=== PATIENT | female | born 1985 | race Caucasian/White ===

== ENCOUNTER → 2017-07-27 | Emergency (ER) | payer OTHER ==
[~2017-07-27] VITALS: Ht 167.6 cm; Wt 95.3 kg
== END | disposition home or self-care (01) ==
LOC: ER 03:17
DX: O20.8 Other hemorrhage in early pregnancy (principal); Z34.01 Encounter for supervision of normal first pregnancy, first trimester

== ENCOUNTER 2019-07-09 16:16 | Outpatient (CLI) | payer OTHER | END 2019-07-09 16:21 | disposition home or self-care (01) | LOC: LAB 16:16 | DX: J11.1 Influenza due to unidentified influenza virus with other respiratory manifestations (principal); R05 Cough ==

== ENCOUNTER 2019-10-09 00:43 | Emergency (ER) | payer OTHER ==
[~2019-10-09] VITALS: Ht 165.1 cm; Wt 77.1 kg
[2019-10-09] MEDS ORDERED: PROAIR HFA8.5 GM (00:56)
[2019-10-09] MEDS ORDERED: INTESTINEX680 M2 PO (07:17)
[2019-10-09] MEDS ORDERED: ZOFRAN8 MG PO (07:17)
[2019-10-09] MEDS ORDERED: PEPCID AC20 MG PO (07:17)
== END 2019-10-09 07:40 | disposition home or self-care (01) ==
LOC: ER 00:43
DX: K29.00 Acute gastritis without bleeding (principal); R10.31 Right lower quadrant pain

== ENCOUNTER → 2021-08-13 | Emergency (ER) | payer OTHER ==
[~2021-08-13] VITALS: Ht 165.1 cm; Wt 78.9 kg
[~2021-08-13] MED LIST: INTESTINEX680 M2 PO; PEPCID AC20 MG PO; PROAIR HFA8.5 GM; TENCON 50-3251 EACH PO; ZOFRAN8 MG PO
== END | disposition home or self-care (01) ==
LOC: ER 02:45
DX: G43.909 Migraine, unspecified, not intractable, without status migrainosus (principal)

== ENCOUNTER 2023-04-05 02:54 | Emergency (ER) | payer OTHER ==
[~2023-04-05] VITALS: Ht 165.1 cm; Wt 75.3 kg
[2023-04-05 06:36] LABS: HEMATOCRIT 41.2 % (36.0-45.00); HEMOGLOBIN 14.1 g/dL (12.0-15.00); MEAN CELL VOLUME 90.7 fL (80.00-100.00); MEAN CORPUSCULAR HEMOGLOBIN 31.1 pg (27.00-32.0); MEAN CORPUSCULAR HGB CONC 34.3 g/dl (32.0-36.0); PLATELET COUNT 264 K/uL (150-450); RED BLOOD COUNT 4.54 M/uL (4.00-6.00); RED CELL DISTRIBUTION WIDTH 12.4 % (11.5-14.5)
[2023-04-05 07:13] LABS: CALCIUM 8.7 mg/dL (8.5-10.1); CREATININE SERUM 0.66 mg/dL (0.55-1.02); GFR 101.33; POTASSIUM 3.78 mEq/L (3.5-5.1)
== END 2023-04-05 07:27 | disposition home or self-care (01) ==
LOC: ER 02:54
DX: K52.9 Noninfective gastroenteritis and colitis, unspecified (principal); Z91.013 Allergy to seafood; Z91.048 Other nonmedicinal substance allergy status